=== PATIENT | female | born 1990 | race Caucasian/White ===

== ENCOUNTER 2017-07-01 15:01 | Emergency (ER) | payer OTHER ==
[~2017-07-01] VITALS: Ht 165.1 cm; Wt 75.5 kg
[2017-07-01 15:06] VITALS: BP 140/98
== END 2017-07-01 16:28 | disposition home or self-care (01) ==
LOC: ED 15:01
DX: K64.9 Unspecified hemorrhoids (principal)
CPT/HCPCS: G0480